=== PATIENT | female | born 1960 | race Caucasian/White ===

== ENCOUNTER 2018-11-04 08:02 | Day surgery (SDC) | payer OTHER ==
[2018-11-04] MEDS ORDERED: LR 1,000 ML IV ONE (08:19)
--- NOTE | 2018-11-04 09:22 | PDANEPAE ---
ANE History of Present Illness hx of polyps ANE Past Medical History - Cardiovascular History Hx Hypertension: No Hx Arrhythmias: No Hx Chest Pain: No Hx Coronary Artery / Peripheral Vascular Disease: No Hx CHF / Valvular Disease: No Hx Palpitations: No - Pulmonary History Hx COPD: No Hx Asthma/Reactive Airway Disease: No Hx Recent Upper Respiratory Infection: No Hx Oxygen in Use at Home: No Hx Sleep Apnea: No Sleep Apnea Screening Result - Last Documented: Negative - Neurologic History Hx Cerebrovascular Accident: No Hx Seizures: No Hx Dementia: No - Endocrine History Hx Diabetes: No Hypothyroid: No Hyperthyroid: No Obesity: no - Renal History Hx Renal Disorders: No - Liver History Hx Hepatic Disorders: No - Neurological & Psychiatric Hx Hx Neurological and Psychiatric Disorders: No - Cancer History Hx Cancer: No - Congenital Disorder History Hx Congenital Disorders: No - GI History GERD: no Hx Gastrointestinal Disorders: No - Other Health History Other Health History: none - Chronic Pain History Chronic Pain: No - Surgical History Prior Surgeries: none in last 5yrs. colonoscopy ANE Review of Systems Review of systems is: negative Review of Systems: - Exercise capacity METS (RN): 5 METS ANE Patient History - Allergies Allergies/Adverse Reactions: No Known Allergies Allergy (Verified 11/03/18 16:16) - Home Medications Home medications: home medication list seen and reviewed Home Medications: Calcium 11/03/18 [Last Taken 2 Days Ago ~11/02/18] Fish Oil 1000 mg (*) 11/03/18 [Last Taken 2 Days Ago ~11/02/18] - NPO status NPO Since - Liquids (Date): 11/03/18 NPO Since - Liquids (Time): 21:00 NPO Since - Solids (Date): 11/03/18 NPO Since - Solids (Time): 09:00 - Anes Hx Anes Hx: no prior problems - Smoking Hx Smoking Status: Never smoked - Family Anes Hx Family Anes Hx: none Family Hx Anesthesia Complications: none ANE Labs/Vital Signs - Vital Signs Blood Pressure: 140/87 Heart Rate: 60 Respiratory Rate: 16 O2 Sat (%): 95 Height: 168.91 cm Weight: 58.967 kg ANE Physical Exam - Airway Neck exam: FROM Mallampati Score: Class 2 Mouth exam: normal dental/mouth exam - Pulmonary Pulmonary: no respiratory distress, clear to auscultation - Cardiovascular Cardiovascular: regular rate and rhythym, no murmur, rub, or gallop - ASA Status ASA Status: I ANE Anesthesia Plan Anesthesia Plan: GA with mask Total IV Anesthesia: Yes
--- NOTE | 2018-11-04 09:30 | PDGENHP ---
History & Physical Chief Complaint: fam h/o polyps History of Present Illness: h/o tortous colon Relevant Physical Exam: cv rrr s1s2 nl. chest cta. abd + bs soft Cardiorespiratory Assessment: asa1
[2018-11-04] MEDS ORDERED: PROPOFOL/EMULSION 500 MG/50 ML BOTTLE IV ONE (09:34)
[2018-11-04] MEDS ORDERED: NALOXONE HCL 0.4 MG/ML INJ IVP PRN (09:45)
--- NOTE | 2018-11-04 09:46 | POSTANESTH ---
Post Anesthetic Evaluation Cardiovascular Status: Normal, Stable Respiratory Status: Normal, Stable Level of Consciousness/Mental Status: Can Participate in Eval Pain Control: Adequate, Prn Tx Ordered Nausea/Vomiting Control: Adequate, Prn Tx Ordered Complications Possibly Related to Anesthesia: None Noted
--- NOTE | 2018-11-04 10:00 | GIREPORT ---
[facility] Surgical Services - Endoscopy Department Patient Name: Socorro Mckinley Procedure Date: 11/04/2018 9:01 AM Patient Type: Outpatient Attending MD/ ER Physician: Mary Curtis MD Procedure: Colonoscopy Indications: Screening for colorectal malignant neoplasm, Colon cancer screening in patient at increased risk: Family history of 1st-degree relative with c olon polyps Providers: Mary Curtis MD Medicines: Monitored Anesthesia Care Complications: No immediate complications. Description of Procedure: After obtaining informed consent, the scope was passed under direct vis ion. Throughout the procedure, the patient's blood pressure, pulse, and oxyg en saturations were monitored continuously. The Colonoscope with irrigatio n channel was introduced through the anus and advanced to the terminal il eum. The colonoscopy was performed without difficulty. The patient tolerated the procedure well. The quality of the bowel preparation was good. The term inal ileum, ileocecal valve, appendiceal orifice, and rectum were photograph ed. Findings: The perianal and digital rectal examinations were normal. A 5 mm polyp was found in the sigmoid colon. The polyp was sessile. The polyp was removed with a cold biopsy forceps. Resection and retrieval w ere complete. Estimated blood loss was minimal. Estimated Blood Loss: Estimated blood loss was minimal. Post Op Diagnosis: - One 5 mm polyp in the sigmoid colon, removed with a cold biopsy force ps. Resected and retrieved. Recommendation: - Await pathology results. - Patient has a contact number available for emergencies. The signs and symptoms of potential delayed complications were discussed with the pat ient. Return to normal activities tomorrow. Written discharge instructions we re provided to the patient. - Resume previous diet. - Continue present medications. - Repeat colonoscopy in 5 years for surveillance h/o adenoma in 2004. - Discharge patient to home. - Thank you for allowing me to participate in the care of your patient. Attending Participation: I personally performed the entire procedure. Mary Curtis MD Mary Curtis MD 11/04/2018 9:59:57 AM This report has been signed electronicallyMary Curtis MD Number of Addenda: 0 Note Initiated On: 11/04/2018 9:01 AM Total Procedure Duration Time 0 hours 14 minutes 38 seconds [email or web address]
[2018-11-04 10:47] VITALS: BP 129/83
== END 2018-11-04 10:45 | disposition home or self-care (01) ==
LOC: FSGY 08:02
PROVIDERS: ATTEND Internal Medicine Gastroenterology
PROC: 0DBN8ZX Excision of Sigmoid Colon, Via Natural or Artificial Opening Endoscopic, Diagnostic (ICD-10-PCS; principal; 2018-11-04 09:30)
DX: Z12.11 Encounter for screening for malignant neoplasm of colon (principal); K63.5 Polyp of colon; Z83.71 Family history of colonic polyps
CPT/HCPCS: J2704